=== PATIENT | male | born 1950 | race Caucasian/White ===

== ENCOUNTER 2016-07-27 07:28 | Day surgery (SDC) | payer MEDICARE ==
[~2016-07-27 07:28] MED LIST: ceFAZolin 1 GM VIAL ONE
[2016-07-27] MEDS ORDERED: LACTATED RINGERS 1,000 ML IV ONE ×2 (07:53→09:40)
[2016-07-27] MEDS ORDERED: BUPIVACAINE 0.5%-EPI 1:200000 PF 30 ML VIAL SUBQ ONE (08:30)
[2016-07-27] MEDS ORDERED: LIDOCAINE-MPF 2% 5 ML VIAL IM ONE (09:00)
[2016-07-27] MEDS ORDERED: NEOSTIGMINE 1 MG/1 ML 10 ML MDV IVP ONE (09:00)
[2016-07-27] MEDS ORDERED: MIDAZOLAM 2 MG/2 ML VIAL IVP ONE (09:00)
[2016-07-27] MEDS ORDERED: fentaNYL 100 MCG/2 ML VIAL IVP ONE (09:00)
[2016-07-27] MEDS ORDERED: PROPOFOL 200 MG/20 ML VIAL IVP ONE (09:00)
[2016-07-27] MEDS ORDERED: ONDANSETRON 4 MG/2 ML VIAL IVP ONE (09:00)
[2016-07-27] MEDS ORDERED: DEXAMETHASONE 4 MG/ML VIAL IVP ONE (09:00)
[2016-07-27] MEDS ORDERED: GLYCOPYRROLATE 1 MG/5 ML VIAL IVP ONE (09:00)
[2016-07-27] MEDS ORDERED: ROCURONIUM 50 MG/5 ML VIAL IVP ONE (09:00)
[2016-07-27] MEDS: HYDROmorphone 1 MG/ML SYRINGE ONE ×4 (10:29→11:11)
[2016-07-27] MEDS: LABETALOL 20 MG/4 ML SYRINGE IVP ONE ×2 (10:46→10:59)
[2016-07-27] MEDS ORDERED: oxyCOD/ACETAMIN 5 MG/325 MG TABLET PO ONE (12:57)
== END 2016-07-27 07:29 | disposition home or self-care (01) ==
PROC: 0YUA4JZ Supplement Bilateral Inguinal Region with Synthetic Substitute, Percutaneous Endoscopic Approach (ICD-10-PCS; principal; 2016-07-27 08:30)
DX: K40.20 Bilateral inguinal hernia, without obstruction or gangrene, not specified as recurrent (principal); I10 Essential (primary) hypertension; Z82.49 Family history of ischemic heart disease and other diseases of the circulatory system; Z83.3 Family history of diabetes mellitus; Z87.891 Personal history of nicotine dependence; H91.90 Unspecified hearing loss, unspecified ear
CPT/HCPCS: 49650; A9270; C1781; J1170; J7120

== ENCOUNTER 2020-01-19 07:52 | Outpatient (CLI) | payer MEDICARE, OTHER | END 2020-01-19 07:53 | disposition home or self-care (01) | LOC: DI 07:52 | PROVIDERS: ATTEND Registered Nurse | DX: R01.1 Cardiac murmur, unspecified (principal) | CPT/HCPCS: 93306 ==

== ENCOUNTER 2020-04-25 09:27 | Day surgery (SDC) | payer MEDICARE, OTHER ==
[~2020-04-25 09:27] MED LIST changes: +LACTATED RINGERS 1,000 ML IV ONE; -ceFAZolin 1 GM VIAL ONE
[2020-04-25] MEDS ORDERED: MIDAZOLAM 2 MG/2 ML VIAL IVP ONE (11:05)
[2020-04-25] MEDS ORDERED: fentaNYL 250 MCG/5 ML VIAL IVP ONE (11:05)
[2020-04-25] MEDS ORDERED: LACTATED RINGERS 1,000 ML IV ONE (11:34)
[2020-04-25 11:46] VITALS: BP 121/78
== END 2020-04-25 09:28 | disposition home or self-care (01) ==
LOC: SDS 09:27
PROVIDERS: ATTEND Surgery
PROC: 0DBP8ZZ Excision of Rectum, Via Natural or Artificial Opening Endoscopic (ICD-10-PCS; 2020-04-25)
PROC: 0DBK8ZZ Excision of Ascending Colon, Via Natural or Artificial Opening Endoscopic (ICD-10-PCS; principal; 2020-04-25 10:15)
DX: Z12.11 Encounter for screening for malignant neoplasm of colon (principal); D12.8 Benign neoplasm of rectum; K63.5 Polyp of colon; K57.30 Diverticulosis of large intestine without perforation or abscess without bleeding
CPT/HCPCS: 45380; J3010; J7120

== ENCOUNTER 2021-02-19 11:46 | Outpatient (CLI) | payer MEDICARE, OTHER ==
[2021-02-19 15:07] LABS: PSA TOTAL 7.594 ng/mL (0.000-2.000)
[2021-02-19 15:53] LABS: PSA FREE 0.74 ng/mL (0.16-2.81)
== END 2021-02-19 11:47 | disposition home or self-care (01) ==
LOC: LAB.S 11:46
PROVIDERS: ATTEND Registered Nurse
DX: R97.20 Elevated prostate specific antigen [PSA] (principal)
CPT/HCPCS: 36415; 84153; 84154

== ENCOUNTER 2021-11-20 07:03 | Outpatient (CLI) | payer MEDICARE, OTHER ==
[2021-11-20 14:51] LABS: CALCIUM 9.4 mg/dL (8.5-10.3); POTASSIUM 4.5 mmol/L (3.5-5.0)
== END 2021-11-20 07:04 | disposition home or self-care (01) ==
LOC: LAB.S 07:03
PROVIDERS: ATTEND Registered Nurse
DX: E78.5 Hyperlipidemia, unspecified (principal)
CPT/HCPCS: 36415; 80048

== ENCOUNTER 2021-11-26 08:00 | Outpatient (CLI) | payer MEDICARE, OTHER ==
--- NOTE | 2021-11-26 16:05 | XRAY Report ---
PROCEDURE: Finger(s) LT INDICATIONS: LEFT THUMB PAIN TECHNIQUE: AP hand, 2 views of the left first finger(s) acquired. COMPARISON: None FINDINGS: Bones: No fractures or dislocations. No suspicious bony lesions. Patient is status post amputation of the third distal phalange. Moderate to severe first MCP, fourth PIP and fifth PIP joint osteoarthr itis. Moderate second, fourth and fifth DIP joint osteoarthritis. Soft tissues: No suspicious soft tissue calcifications. IMPRESSION: Osteoarthritis as described above. No fracture. No acute osseous lesion. If symptoms and/or clinical concern for pathology persists, fur ther assessment with repeat plain film radiographs (7-10 days) or advanced imaging (CT, MR, bone scan ) should be considered. Reviewed by: Alexsandra Gar MD, PhD on 11/26/2021 4:04 PM PDT Approved by: Alexsandra Gar MD, PhD on 11/26/2021 4:04 PM PDT Station ID: [id number]
== END 2021-11-26 23:59 | disposition home or self-care (01) ==
LOC: DI.S 08:00
PROVIDERS: ATTEND Physician Assistant Medical
DX: M18.12 Unilateral primary osteoarthritis of first carpometacarpal joint, left hand (principal)

== ENCOUNTER 2023-11-24 08:14 | Day surgery (SDC) | payer MEDICARE, OTHER ==
[2023-11-24] MEDS: LACTATED RINGERS 1,000 ML IV ONE (08:15)
--- NOTE | 2023-11-24 09:01 | ANESTHESIA ---
Pre-Anesthesia VS, & Labs - Diagnosis screening, hemorrhoids - Procedure colonoscopy, hemorrhoid banding Vital Signs: Temp Pulse Resp BP Pulse Ox O2 Flow Rate 36.1 C L 64 14 130/73 100 11/24/23 08:20 11/24/23 08:20 11/24/23 08:20 11/24/23 08:20 11/24/23 08:20 Height: 5 ft 10 in Weight (kg): 83 kg Body Mass Index: 26.2 BMI Classification: Overweight - NPO Other (prep as directed, last water 5am) Home Medications and Allergies Home Medications: Ambulatory Orders Aspirin [Vazalore] 81 mg PO DAILY 11/24/23 Ezetimibe [Zetia] 10 mg PO QD 11/24/23 Rosuvastatin Calcium 20 mg PO DAILY 11/24/23 amLODIPine [Norvasc] 5 mg PO DAILY 11/24/23 Enalapril [Vasotec] 20 mg PO DAILY 06/01/16 Aspirin [Vazalore] 81 mg PO DAILY 11/24/23 Ezetimibe [Zetia] 10 mg PO QD 11/24/23 Rosuvastatin Calcium 20 mg PO DAILY 11/24/23 amLODIPine [Norvasc] 5 mg PO DAILY 11/24/23 Allergies/Adverse Reactions: Allergies Allergy/AdvReac Type Severity Reaction Status Date / Time No Known Drug Allergies Allergy Verified 11/24/23 08:19 Anes History & Medical History - Anesthetic History Anesthesia Complications: reports: No previous complications - Medical History Cardiovascular: reports: Hypertension, High cholesterol Pulmonary: reports: None Gastrointestinal: reports: None Urinary: reports: Other Musculoskeletal: reports: Osteoarthritis Endocrine/Autoimmune: reports: None Skin: reports: Psoriasis Smoking Status: Former smoker Psychosocial: reports: Alcohol (one a day) - Surgical History General: reports: Colonoscopy Orthopedic: reports: Knee replacement, ACL reconstruction, Rotator cuff repair, Arthroscopic surgery, Other Dermatologic: reports: Skin grafts Exam General: Alert, Oriented x3 Dental: WNL Mouth Opening: Greater than 4 Fingerbreadths Neck Mobility: Normal Mallampati classification: I Thyromental Distance: greater than 6 cm Respiratory: Lungs clear Cardiovascular: Regular rate Plan Anesthesia Type: Total IV Consent for Procedure(s) Verified and Reviewed: Yes Code Status: Attempt Resuscitation ASA classification: 2-Mild systemic disease Is this case an emergency?: No
[2023-11-24] MEDS ORDERED: PROPOFOL 500 MG/50 ML 500 MG/50 ML VIAL ONE (09:34)
[2023-11-24] MEDS: SIMETHICONE *(INFANT SUSP)* 40 MG/0.6 ML BOTTLE PO ONE (09:44)
[2023-11-24] MEDS: LACTATED RINGERS 600 ML IV ONE (10:15)
[2023-11-24 10:43] VITALS: BP 108/70; O2SAT 98
--- NOTE | 2023-11-24 10:50 | ANESTHESIA POST OP EVALUATION ---
Anesthesia Post Eval - Post Anesthesia Eval Vitals: Last Vital Signs Temp 36.3 C L 11/24/23 10:15 Pulse 62 11/24/23 10:33 Resp 14 11/24/23 10:33 BP 108/70 11/24/23 10:33 Pulse Ox 98 11/24/23 10:33 O2 Flow Rate CV Function Including HR & BP: Stable Pain Control: Satisfactory Nausea & Vomiting: Negative Mental Status: Baseline Respiratory Status: Airway Patent Hydration Status: Satisfactory Anesthesia Complications: None
== END 2023-11-24 08:15 | disposition home or self-care (01) ==
LOC: SDS 08:14
PROVIDERS: ATTEND Surgery
PROC: 0DBL8ZX Excision of Transverse Colon, Via Natural or Artificial Opening Endoscopic, Diagnostic (ICD-10-PCS; principal; 2023-11-24 09:30)
DX: Z12.11 Encounter for screening for malignant neoplasm of colon (principal); K63.5 Polyp of colon; K64.2 Third degree hemorrhoids; I10 Essential (primary) hypertension; Z87.891 Personal history of nicotine dependence
CPT/HCPCS: 45380; 46221; A9270; J7120